=== PATIENT | male | born 1990 | race Caucasian/White ===

== ENCOUNTER 2017-09-13 13:26 | Inpatient (IN) | payer OTHER ==
[~2017-09-13] VITALS: Ht 172.7 cm; Wt 70.8 kg
[2017-09-13] MEDS ORDERED: ONDANSETRON PF 4 MG/2 ML VIAL. IV ONE (13:45)
[2017-09-13] MEDS ORDERED: KETOROLAC 30 MG/ML VIAL. IV ONE (13:45)
[2017-09-13] MEDS ORDERED: IV NORMAL SALINE 1,000ML 1,000 ML IV SCH (13:45)
--- NOTE | 2017-09-13 13:49 | PHYS DOC ---
General Chief Complaint: ABDOMINAL PAIN Stated Complaint: PAIN IN LEFT SIDE Time Seen by MD: 13:29 Source: patient Exam Limitations: no limitations Problems: History of Present Illness Initial Comments Patient is a 26-year-old male who comes to the ED complaining with what he thinks is a recurrence of pancreatitis. Patient states that 4 months ago he presented to [facility] emergency Department with left-sided abdominal pain. He states that after extensive workup was diagnosed with pancreatitis and due to lack of beds transferred to where he spent the next 4 days. Extensive testing at and then subsequent outpatient referrals revealed no obvious cause for his symptoms and he was diagnosed with alcoholic pancreatitis. Patient states that he has never drank alcohol in excess, that he is "normal 26-year-old suzie who likes to alliance party every once in a while" but denies ever drinking daily or in great quantities. Patient is active duty and states that he hadn't had any further issues and "I have maybe 3 or 4 drinks per week" but developed a recurrence of left-sided abdominal discomfort about 10 days ago. He was seen at [facility] last Wednesday and labs were drawn states his lipase was elevated and he was advised to go to the hospital. According to the patient he figured he could give his bowels and pancreas rest at home so for the past week he has been drinking water staying at home only having small snacks occasionally. Today the pain grew so severe he couldn't take it anymore and decided to come for evaluation. He's had some concomitant nausea but no vomiting and denies any bowel changes no fever chills sweats or body aches. He denies any urinary symptoms and says that this pain is identical to prior pancreatitis pain. He is mildly hypertensive with blood pressure 163/98 on arrival otherwise vital signs are normal. Other than his diagnosis of pancreatitis 4 months ago he denies any prior past medical history. Timing/Duration: 1 week, changing over time Severity: severe Modifying Factors: improves with other Associated Symptoms: nausea/vomiting, other Allergies: Coded Allergies: No Known Drug Allergies (Unverified , 09/13/17) Past Medical History Medical History: pancreatitis Surgical History: noncontributory Social History Smoker: non-smoker Alcohol: occasionally Drugs: none Review of Systems Constitutional: denies chills, denies diaphoresis, denies fever, denies malaise Respiratory: denies cough, denies shortness of breath, denies wheezing Cardiovascular: denies chest pain, denies palpitations, denies syncope Gastrointestinal: see HPI (magic there), denies diarrhea Genitourinary: denies dysuria, denies frequency, denies hematuria Musculoskeletal: denies back pain, denies joint swelling, denies neck pain Psychiatric/Neurological: denies headache, denies numbness, denies paresthesia Physical Exam General Appearance: WD/WN, no apparent distress Ear, Nose, Throat: hearing grossly normal, normal ENT inspection, normal pharynx Neck: non-tender, supple Respiratory: chest non-tender, normal breath sounds, no respiratory distress Cardiovascular: normal peripheral pulses, regular rate, rhythm Gastrointestinal: soft (epigastric left upper quadrant tenderness without rebound or guarding, no skin changes or masses palpable, abdomen is nondistended bowel sounds are diminished) Back: no CVA tenderness, no vertebral tenderness Extremities: non-tender, normal inspection Neurologic/Psychiatric: 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 Potassium 3.4, Lipase is markedly elevated otherwise labs unremarkable. I discussed the patient with Dr. Helms. After thorough discussion he requests inpatient MedSurg admission to remain nothing by mouth, for IV hydration and analgesia. He also requests CT evaluation to establish baseline. Patient is agreeable. Departure Disposition: ADMITTED INPATIENT Diagnosis: pancreatitis, hypokalemia Condition: STABLE Additional Instructions: Inpatient MedSurg admission Dr. Helms is accepting. CINTHIA KLINE DO Sep 13, 2017 13:49
[2017-09-13 13:56] LABS: BASO % 0 % (0-3); EOS # 0.3 x10^3/uL (0.0-0.7); EOS % 3 % (0-3); HEMATOCRIT 53.3 % (39.0-53.0); HEMOGLOBIN 18.1 g/dL (13.0-17.5); LYMPH # 2.1 x10^3/uL (1.0-4.8); LYMPH % 27 % (24-48); MEAN CORPUSCULAR HEMOGLOBIN 30 pg (25-35); MEAN CORPUSCULAR HGB CONC 34 g/dL (31-37); MEAN CORPUSCULAR VOLUME 89 fL (79-100); MONO # 0.7 x10^3/uL (0.0-1.1); MONO % 8 % (0-9); NEUT # 4.8 x10^3uL (1.8-7.7); NEUT % 61 % (31-73); PLATELET COUNT 233 x10^3/uL (140-400); RED CELL DISTRIBUTION WIDTH 12.6 % (11.5-14.5); WHITE BLOOD COUNT 7.9 x10^3/uL (4.0-11.0)
[2017-09-13 13:58] LABS: AMPHETAMINE/METHAMPHETAMINE NEG (NEG); BARBITURATES NEG (NEG); BENZODIAZEPINES NEG (NEG); CANNABINOIDS NEG (NEG); COCAINE NEG (NEG); METHADONE NEG (NEG); OPIATES NEG (NEG); PHENCYCLIDINE NEG (NEG)
[2017-09-13 14:00] LABS: BACTERIA,URINE 0 /HPF (0-FEW); BILIRUBIN,URINE NEG (NEG); CLARITY,URINE CLEAR; COLOR,URINE YELLOW; GLUCOSE,URINE NEG (NEG); NITRITE,URINE NEG (NEG); RBC,URINE 0 /HPF (0-2); SQUAMOUS EPITHELIAL CELL,UR OCC /LPF; UROBILINOGEN,URINE 0.2 mg/dL (0.2 mg/dL); WBC,URINE 0 /HPF (0-4)
[2017-09-13] MEDS ORDERED: MORPHINE SULFATE 4 MG/ML DISP.SYRIN. IV/SQ PRN (14:00)
[2017-09-13 14:13] LABS: ALBUMIN 5.1 g/dL (3.4-5.0); ALBUMIN/GLOBULIN RATIO 1.2 (1.0-1.7); CALCIUM 9.9 mg/dL (8.5-10.1); GFR 91.8; POTASSIUM 3.4 mmol/L (3.5-5.1); TOTAL BILIRUBIN 0.8 mg/dL (0.2-1.0); TOTAL PROTEIN 9.2 g/dL (6.4-8.2)
[2017-09-13] MEDS ORDERED: ONDANSETRON PF 4 MG/2 ML VIAL. IV PRN ×2 (14:30→18:00)
[2017-09-13] MEDS ORDERED: ACETAMINOPHEN 325 MG TABLET PO PRN (14:30)
[2017-09-13] MEDS ORDERED: MORPHINE SULFATE 4 MG/ML DISP.SYRIN. IV PRN (14:30)
[2017-09-13] MEDS ORDERED: IOHEXOL 240 MG/ML 50ML VIAL. ONE (14:33)
--- NOTE | 2017-09-13 14:48 | RAD ---
Two-view abdominal series and PA view chest x-ray History: Left-sided abdominal pain. History of pancreatitis. Findings: No obstructive bowel pattern is seen. No air-fluid levels are seen. No free intraperitoneal air is seen. Chest x-ray demonstrates no acute lung infiltrate or pleural effusion or pulmonary edema or pneumothorax. The heart size and pulmonary vasculature and mediastinum and both jessica are unremarkable. IMPRESSION: No acute radiographic abnormality is evident.
[2017-09-13] MEDS ORDERED: IOHEXOL 240 MG/ML 50ML VIAL. PO ONE (15:00)
[2017-09-13] MEDS ORDERED: IOHEXOL 300 MG/ML 75 ML VIAL. IV ONE (15:00)
--- NOTE | 2017-09-13 15:45 | RAD ---
EXAM: CT abdomen/pelvis with contrast. HISTORY: Vomiting, pancreatitis. TECHNIQUE: Computed tomography of the abdomen and pelvis was performed after the intravenous administration of 75 mL Omnipaque 300. COMPARISON: None. FINDINGS: Lung windows through the visualized portions of the bases reveal mild atelectasis. Bone windows reveal no suspicious lesions. The appendix is not inflamed. There is no obstruction. There are no pathologically enlarged lymph nodes. A right renal calculus measures 3 mm. There are no ureteral calculi. The liver, gallbladder, pancreas, spleen and adrenal glands are unremarkable. IMPRESSION: 1. No cause for acute pain is identified. 2. 3 mm right renal calculus. *One or more of the following individualized dose reduction techniques were utilized for this examination: 1. Automated exposure control. 2. Adjustment of the mA and/or kV according to patient size. 3. Use of iterative reconstruction technique.
[2017-09-13 16:49] VITALS: BP 125/71
--- NOTE | 2017-09-13 19:16 | HP ---
ADMIT DATE: 09/13/2017 HISTORY OF PRESENT ILLNESS: The patient is a 26-year-old male patient who came to the Emergency Room this afternoon complaining of abdominal pain. He apparently was seen at [facility] about a week ago with abdominal pain and was found to have elevated serum lipase and labs with acute pancreatitis. He tried to medicate himself be on a low fat diet; however, his pain continued to worsen and he came to the Emergency Room for further evaluation and treatment. His serum lipase was high at 1176. His CT scan of the abdomen and pelvis showed that the liver, gallbladder, pancreas, spleen, adrenal glands are unremarkable. He has 3 mm right renal calculus. No ureteral calculi and was admitted for pain management. He apparently was diagnosed with acute pancreatitis about 4 months ago, and at that time, he was seen in [facility] and was transferred to [facility] where he spent about 4 days. He was extensively investigated at [facility] and has had subsequent outpatient followup. No cause for his symptoms and he was diagnosed with alcoholic pancreatitis. He stated that he never has alcohol excess. He takes 2-3 drinks in a week. Denies drinking on a daily basis or in great quantities. He is active duty and states that he has not had any further issues. PAST MEDICAL HISTORY: Significant for acute pancreatitis. PAST SURGICAL HISTORY: Abdominal hernia repair. ALLERGIES: He has no known drug allergies. MEDICATIONS: No medication. FAMILY HISTORY: He has 3 older brothers and 1 little sister, they are all healthy. His father is alive at the age of 64, he is known to have hepatitis C, lupus. Mother is alive and in her 50s and has hypertension. SOCIAL HISTORY: He is , has 2 daughters. He smokes half a pack a day. Drinks alcohol once a week. He works as a diplomatic officer. REVIEW OF SYSTEMS: As per history of present illness. PHYSICAL EXAMINATION GENERAL: When I examined him, he looked well and was clearly in no apparent respiratory distress, pale. No jaundice, cyanosis or thyromegaly. No jugular venous distention. No limb edema. VITAL SIGNS: Her heart rate was 68, blood pressure was 146/78, temperature was 97.5, respiratory rate was 16 and oxygen saturation was 100%. HEAD, EYES, EARS, NOSE AND THROAT: Normocephalic, atraumatic. NECK: Supple. HEART: Showed normal first and second heart sounds with no gallop, rub or murmur. CHEST: Clear to auscultation. No crepitation or rhonchi. ABDOMEN: Distended, soft, nontender. No guarding or rigidity. No organomegaly. Hernial orifices intact. Bowel sounds normal. NEUROLOGIC: He was awake, alert, responding appropriately. Cranial nerves intact. EXTREMITIES: She moves extremities without difficulty, ambulates without assistance or assistive devices. LABORATORY DATA: On arrival showed a serum sodium 138, potassium 3.4, chloride 98, bicarbonate 30, anion gap of 10, BUN 9, creatinine 1, estimated GFR was 92 mL per minute. His glucose was 102, calcium was 9.9, total bilirubin was 0.8. AST, ALT were normal. Alkaline phosphatase slightly elevated. His CK was 81. Total protein was 9.2, albumin was 5.1. His lipase was 1176. His white cell count was 7900, hemoglobin 18, hematocrit 53.3, MCV 89 and platelet count of 233,000 with normal manual differential. Urinalysis showed the urine was yellow, clear with a pH of 6.5, specific gravity of 1.010. The urine was negative for protein, glucose, ketones, blood, nitrite, bilirubin, and leukocyte esterase; no rbc's, no wbc's, and no bacteria. His toxic screen was negative for opiates, methadone, barbiturates, phencyclidine, amphetamine, methamphetamine, benzodiazepine, cocaine, cannabinoids and alcohol. He did have an acute abdomen series showed that there is no obstructive bowel pattern seen, no air fluid levels are seen and no free intraperitoneal air is seen. Chest x-ray demonstrated no acute lung infiltrate, pleural effusion or pulmonary edema or pneumothorax. Heart size and pulmonary vasculature and mediastinum and both jessica are unremarkable. CT scan of the abdomen and pelvis showed that the lung windows through the visualized portion of the bases reveal mild atelectasis. Bone windows reveal no suspicious lesions. The appendix not inflamed. There is no obstruction. There are no pathologically enlarged lymph nodes. Her right renal calculus measures 3 mm. There are no ureteral calculi. The liver, gallbladder, pancreas, spleen, adrenal glands are unremarkable. ASSESSMENT AND PLAN: In summary, this is a 26-year-old male patient who came with another relapsing acute pancreatitis, most likely related to alcohol. I will continue with IV fluid, continue with pain management and antiemetic. His potassium is low, so we will arrange for replenishing that. I will repeat his lab works including his fasting lipid profile tomorrow. Allow clear liquid diet as tolerated and I will repeat all his labs tomorrow and decide on further management accordingly. THERESA VAUGHAN MD DR: GLENYS/joaquin JOB#: [id number] / [id number]
[2017-09-13 19:54] VITALS: BP 102/59
[2017-09-13] MEDS: POTASSIUM CL 20MEQ IN 0.9%NACL 1,000 ML IV SCH (20:13)
[2017-09-13 23:57] VITALS: BP 107/65
[2017-09-14] MEDS: POTASSIUM CL 20MEQ IN 0.9%NACL 1,000 ML IV SCH ×3 (05:55→17:01)
[2017-09-14 06:05] VITALS: BP 104/63
[2017-09-14 07:03] LABS: BASO # 0.1 x10^3/uL (0.0-0.2); BASO % 1 % (0-3); EOS # 0.3 x10^3/uL (0.0-0.7); EOS % 4 % (0-3); HEMOGLOBIN 14.9 g/dL (13.0-17.5); LYMPH # 2.8 x10^3/uL (1.0-4.8); LYMPH % 41 % (24-48); MEAN CORPUSCULAR HEMOGLOBIN 31 pg (25-35); MEAN CORPUSCULAR HGB CONC 35 g/dL (31-37); MEAN CORPUSCULAR VOLUME 89 fL (79-100); MONO # 0.6 x10^3/uL (0.0-1.1); MONO % 9 % (0-9); NEUT # 3.2 x10^3uL (1.8-7.7); NEUT % 46 % (31-73); PLATELET COUNT 177 x10^3/uL (140-400); RED BLOOD COUNT 4.81 x10^6/uL (4.30-5.70); RED CELL DISTRIBUTION WIDTH 12.6 % (11.5-14.5); WHITE BLOOD COUNT 6.9 x10^3/uL (4.0-11.0)
[2017-09-14 07:06] LABS: ALBUMIN 3.5 g/dL (3.4-5.0); ALBUMIN/GLOBULIN RATIO 1.3 (1.0-1.7); CALCIUM 8.3 mg/dL (8.5-10.1); CREATININE 0.9 mg/dL (0.7-1.3); GFR 103.7; POTASSIUM 3.7 mmol/L (3.5-5.1); TOTAL BILIRUBIN 0.9 mg/dL (0.2-1.0); TOTAL PROTEIN 6.3 g/dL (6.4-8.2)
[2017-09-14 10:55] VITALS: BP 112/68
[2017-09-14] MEDS ORDERED: PROMETHAZINE 12.5 MG in IV NORMAL SALINE 50ML 50 ML IV PRN (15:00)
[2017-09-14 15:40] VITALS: BP 114/73
[2017-09-14 20:06] VITALS: BP 117/73
[2017-09-14 23:02] VITALS: BP 120/75
[2017-09-15 05:22] VITALS: BP 105/62
[2017-09-15] MEDS: POTASSIUM CL 20MEQ IN 0.9%NACL 1,000 ML IV SCH ×3 (06:37→11:15)
[2017-09-15 06:56] LABS: CALCIUM 8.3 mg/dL (8.5-10.1); GFR 91.8; MAGNESIUM 1.6 mg/dL (1.8-2.4); POTASSIUM 4.3 mmol/L (3.5-5.1)
--- NOTE | 2017-09-15 06:57 | PN ---
DATE: 09/14/2017 SUBJECTIVE: The patient is resting, slightly propped up in bed, no apparent distress, is complaining of nausea, but no pain. His lab work showed that his lipase is trending down from 1200 to 770. His lipid profile was normal, showed no evidence hypertriglyceridemia, serum calcium was normal. OBJECTIVE: GENERAL: On examining him, he looked well and was clearly in no apparent respiratory distress, pale. No jaundice, cyanosis, or thyromegaly. No jugular venous distension. No limb edema. VITAL SIGNS: His heart rate was 52, blood pressure 112/68, temperature was 97.6, respiratory rate 20, and oxygen saturation was 97%. The rest of the clinical examination is unremarkable, has not really changed. His intake was 1800, no output was recorded. LABORATORY DATA: As of this morning showed a serum sodium 141, potassium 3.7, chloride 105, bicarbonate 30, anion gap of 6. BUN 8, creatinine 0.9, estimated GFR was 104 mL per minute. His glucose was 92, calcium was 8.3. Total bilirubin, AST, ALT, alkaline phosphatase were normal. Total protein was 6.3, albumin 3.5. His serum triglycerides were 82. Total cholesterol was 126, LDL was 69, VLDL was 16 and HDL was 41 and ratio was 13. His serum lipase was 770. White cell count was 6900, hemoglobin 14.9, hematocrit 43, MCV 89 and platelet count of 177,000. ASSESSMENT: Acute relapsing pancreatitis, most likely alcohol related. PLAN: My plan is to advance his diet to full liquid diet and cut back on his fentanyl to every 4 hours as needed, add Phenergan 12.5 mg IV if the Zofran is not helpful and repeat his lab work and hopefully advance his diet tomorrow and he can be discharged home if the serum lipase is normalized. THERESA VAUGHAN MD DR: GLENYS/joaquin JOB#: [id number] / [id number]
[2017-09-15 11:06] VITALS: BP 115/69
[2017-09-15] MEDS ORDERED: TRAM50TA PO (14:46)
[2017-09-15 14:57] VITALS: BP 130/76
--- NOTE | 2017-09-15 22:58 | DS ---
DATE OF DISCHARGE: 09/15/2017 HOSPITAL COURSE: The patient is a 26-year-old male patient who came to the Emergency Room with a complaint of abdominal pain. He was seen at [facility] about a week prior to admission and was found to have elevated serum lipase and consistent with acute pancreatitis. He tried to medicate himself on a low fat diet; however, the pain has continued to worsen and he came to the Emergency Room for further evaluation and was found to have high serum lipase of 1175. CT scan of the abdomen and pelvis showed that the liver, gallbladder, pancreas, spleen, adrenal glands are unremarkable. He was initially started n.p.o., then started on a clear liquid diet and eventually we advanced his diet. He mostly complained of nausea and vomiting. He was able to keep his food in and today he has no further episodes of pain or nausea, vomiting, although his serum lipase has risen slightly, he remained asymptomatic and decision was made to discharge him home to follow with primary care physician. PHYSICAL EXAMINATION: GENERAL: When I examined him, he looked well and was clearly in no apparent respiratory distress. No pallor, jaundice, cyanosis, or thyromegaly. No jugular venous distension. No limb edema. VITAL SIGNS: His heart rate was 65, blood pressure 115/69, temperature was 98, respiratory rate was 20, and oxygen saturation was 98%. HEAD, EYES, EARS, NOSE AND THROAT: Showed normocephalic, atraumatic. NECK: Supple. HEART: Showed normal first and second heart sounds with no gallop, rub or murmur. CHEST: Clear to auscultation. No crepitation or rhonchi. ABDOMEN: Distended, soft, nontender. No guarding or rigidity. No organomegaly. Hernial orifices intact. Bowel sounds normal. NEUROLOGIC: He was awake, alert, responding appropriately. Cranial nerves intact. He moves extremities without difficulty, ambulates without assistance or assistive devices. His intake over the last 24 hours was 4719, no output was recorded. LABORATORY DATA: His lab work this morning showed a white cell count of 6900, hemoglobin 15, hematocrit , MCV 89 and platelet count 177,000 with normal manual differential. His chemistry this morning showed a serum sodium 140, potassium 4.3, chloride 106, bicarbonate 31, anion gap of 3, BUN 6, creatinine 1. Estimated GFR was 92 mL per minute. His glucose was 88, calcium was 8.3, magnesium was 1.6. His serum triglycerides were 82%, total cholesterol 126, LDL was 69, VLDL was 16 and HDL cholesterol was 41. Lipase is actually high after day of admission at 1387. His magnesium is low at 1.6. I have explained the findings, today he is asymptomatic, has no pain, no more nausea, vomiting and he would like to go home to follow with primary care physician. I did give him the name of Dr. Chacorta Sandra livery car driver with [facility] [address]. We gave him his number to follow up. FINAL DISCHARGE DIAGNOSES: 1. Acute pancreatitis. 2. Dehydration. 3. Hypomagnesemia. I have given him a prescription for tramadol for pain and magnesium oxide for hypomagnesemia. THERESA VAUGHAN MD DR: GLENYS/joaquin JOB#: [id number] / [id number]
== END 2017-09-15 15:10 | disposition home or self-care (01) | DRG 440 ==
LOC: ER 13:26 → 1 SOUTH 14:33
PROVIDERS: ADMIT Internal Medicine; ATTEND Internal Medicine
DX: K85.90 Acute pancreatitis without necrosis or infection, unspecified (principal); E83.42 Hypomagnesemia; N20.0 Calculus of kidney; E87.6 Hypokalemia; E86.0 Dehydration; F17.210 Nicotine dependence, cigarettes, uncomplicated; K86.1 Other chronic pancreatitis; Z82.49 Family history of ischemic heart disease and other diseases of the circulatory system
CPT/HCPCS: 36415; 74022; 74177; 80048; 80053; 80061; 80307; 81001; 82550; 83690; 83735; 85025; 96361; 96374; 96375; G0480; J1885; J2405; J2550; J3010; Q9966; Q9967; 99285-25; G0479; J7030

== ENCOUNTER 2020-01-22 15:00 | Emergency (ER) | payer OTHER ==
[~2020-01-22] VITALS: Ht 264.2 cm; Wt 70.5 kg
[~2020-01-22 15:00] MED LIST: TRAM50TA PO
[2020-01-22 15:10] VITALS: BP 132/89
--- NOTE | 2020-01-22 15:14 | PHYS DOC ---
Past History Past Medical History: Pancreatitis Past Surgical History: Other Alcohol Use: Occasionally Drug Use: None Adult General Chief Complaint Chief Complaint: FLU SYMPTOM HPI HPI Patient is a 29-year-old male presents with flulike symptoms with body aches mild cough and chills x1 day duration. No cases taken prior to arrival. Was sent over by his primary care physician secondary to a cough. No sick contacts no recent travel. Review of Systems Review of Systems All other systems were reviewed and found to be within normal limits, except as documented in this note. Allergies Allergies Allergies Coded Allergies Type Severity Reaction Last Updated Verified No Known Drug Allergies 09/13/17 No Physical Exam Physical Exam Constitutional: Well developed, well nourished, no acute distress, non-toxic appearance. [] HENT: Normocephalic, atraumatic, bilateral external ears normal, oropharynx moist, no oral exudates, nose normal. [] Eyes: PERRLA, EOMI, conjunctiva normal, no discharge. [] Neck: Normal range of motion, no tenderness, supple, no stridor. [] Cardiovascular:Heart rate regular rhythm, no murmur [] Lungs & Thorax: Bilateral breath sounds clear to auscultation [] Abdomen: Bowel sounds normal, soft, no tenderness, no masses, no pulsatile masses. [] Skin: Warm, dry, no erythema, no rash. [] Back: No tenderness, no CVA tenderness. [] Extremities: No tenderness, no cyanosis, no clubbing, ROM intact, no edema. [] Neurologic: Alert and oriented X 3, normal motor function, normal sensory function, no focal deficits noted. [] Psychologic: Affect normal, judgement normal, mood normal. [] EKG EKG [] Radiology/Procedures Radiology/Procedures [] Course & Med Decision Making Course & Med Decision Making Pertinent Labs and Imaging studies reviewed. (See chart for details) Flu negative. Will treat with steroids for viral syndrome. Dragon Disclaimer Dragon Disclaimer This electronic medical record was generated, in whole or in part, using a voice recognition dictation system. Departure Departure: Impression: Primary Impression: Viral syndrome Disposition: 01 HOME, SELF-CARE Condition: STABLE Referrals: PCP,NO (PCP) Additional Instructions: Take motrin and tylenol for fever/body aches. Scripts Prednisone (PREDNISONE) 50 Mg Tablet 50 MG PO DAILY for Viral syndrome for 5 Days, #5 TAB Prov: BHARAT KHAN DO 01/22/20 BHARAT KHAN DO Jan 22, 2020 15:14
[2020-01-22 15:46] LABS: INFLUENZA A PATIENT NEGATIVE (NEGATIVE); INFLUENZA B PATIENT NEGATIVE (NEGATIVE)
[2020-01-22] MEDS ORDERED: PRED50TA PO (15:51)
== END 2020-01-22 15:55 | disposition home or self-care (01) ==
LOC: ER 15:00
DX: B34.9 Viral infection, unspecified (principal)
CPT/HCPCS: 87804; 99283